=== PATIENT | female | born 1965 | race Two or more races ===

== ENCOUNTER 2024-03-18 14:22 | Outpatient (OUT) | payer OTHER, SELFPAY ==
--- NOTE | 2024-03-18 14:33 | MR_ITS ---
[address] [address] Patient Name: GAEL PATRICK MRN: [id number] date: 1965 Sex: F Assigned Patient Location: MRI Current Patient Location: Accession/Order Number: [id number] Exam Date: 03/18/2024 14:45 Report Date: 03/20/2024 07:16 At the request of: LEONIE DESAI Procedure: MR lumbar spine wo con EXAMINATION: MR lumbar spine wo con HISTORY: Lumbar Radiculopathy, Degenerative Disc Disease Lumbar COMPARISON: No relevant comparison available. TECHNIQUE: A variety of imaging planes and parameters were utilized for visualization of suspected pathology. FINDINGS: For the purposes of numbering, sagittal T2 image # 8 extends from the T11 vertebral body superiorly to the S3-S4 level inferiorly. PARASPINAL AREA: Normal with no visible mass. BONES: 3 mm retrolisthesis of L5 in relation to L4 and S1. No acute fracture or bone edema CORD/CAUDA EQUINA: Normal caliber, contour, and signal intensity. DISC LEVELS: 12-L1: No significant disc/facet abnormality, spinal stenosis, or foraminal stenosis. L1-L2: No significant disc/facet abnormality, spinal stenosis, or foraminal stenosis. L2-L3: Disc desiccation. Broad-based posterior disc herniation of the protrusion type measuring 4.1 mm on sagittal image #8. Ligamentum flavum hypertrophy and facet osteoarthropathy. No central or foraminal stenosis L3-L4: Moderate disc space narrowing and disc desiccation. Broad-based posterior disc herniation of the protrusion type extending posteriorly up to 3.9 mm. Ligamentum flavum hypertrophy and facet osteoarthropathy. No central canal stenosis. Mild bilateral foraminal stenosis L4-L5: 3 mm anterolisthesis of L4 in relation L5. Moderate disc space narrowing and disc desiccation. No disc bulge or herniation. No central or foraminal stenosis L5-S1: 3 mm retrolisthesis of L5 in relation S1. Moderate disc space narrowing and desiccation. Moderate diffuse disc/osteophyte complex with posterior disc herniation extending posteriorly 4.8 mm sagittal image #8. Ligamentum flavum hypertrophy and facet osteoarthropathy. No central canal stenosis. Mild to moderate right and moderate left foraminal stenosis MR/MR lumbar spine wo con IMPRESSION: Degenerative changes resulting in foraminal stenosis at L3-L4 and L5-S1 detailed above Electronically authenticated by: CARLEY ORTIZ Date: 03/20/2024 07:16
== END 2024-03-18 14:23 | disposition home or self-care (01) ==
LOC: MRI 14:28
PROVIDERS: PCP Family Medicine; Visit Provider Specialist/Technologist Athletic Trainer
DX: M54.16 Radiculopathy, lumbar region (principal); M51.369 Other intervertebral disc degeneration, lumbar region without mention of lumbar back pain or lower extremity pain
CPT/HCPCS: 72148

== ENCOUNTER 2024-05-08 13:26 | Outpatient (OUT) | payer OTHER, SELFPAY ==
--- NOTE | 2024-05-08 13:29 | MM_ITS ---
Patient Name: GAEL PATRICK MR#: [id number] : 1965 Exam Date: 05/08/2024 Ordering Doctor: [facility] REPORT PROCEDURE: MM TOMOSYNTHESIS SCREENING BI COMPARISON: MG MAMM SCREEN ALEX W CAD, 01/30/2019. MG MAMM SCREEN 3D ALEX CAD, 11/04/2021. INDICATIONS: Screening Calculator Name NCI Breast Cancer Risk Assessment Tool 5 Year Breast Cancer Risk 0.80% Lifetime Breast Cancer Risk 4.00% Personal Breast Cancer No Personal Ovarian Cancer No Treatments None Family Cancers Grandfather-paternal with ? stomach cancer at age 68; Son with colon/ stomach cancer at age 68. LOCATION: [facility] BREAST COMPOSITION: There are scattered areas of fibroglandular density. FINDINGS: DIAGNOSTIC CATEGORY 1--NEGATIVE. NO CHANGE FROM COMPARISON ASSESSMENT. Scattered benign-appearing calcifications are present. Scattered benign-appearing lymph nodes are present. RIGHT BREAST: No significant suspicious finding. LEFT BREAST: No significant suspicious finding. RECOMMENDATIONS: ROUTINE MAMMOGRAM AND CLINICAL EVALUATION IN 12 MONTHS. PLEASE NOTE: A NORMAL MAMMOGRAM DOES NOT EXCLUDE THE POSSIBILITY OF BREAST CANCER. A CLINICALLY SUSPICIOUS PALPABLE LUMP SHOULD BE BIOPSIED. Dictated by: Brian Cunha MD on 05/08/2024 at 15:35 Approved by: Brian Cunha MD on 05/08/2024 at 15:36
--- OUTSIDE RECORDS SUMMARY | 2024-05-08 13:31 | XMS_ITS | CCD ---
Author Organization [facility] Care Team Providers Care Butt Sawyer Name Role Phone DR KIT TILLEY Attending Unavailable TREVA, DR KIT Conteh Admitting Unavailable VICKY, DR EVIN Conteh Consulting Unavailable DR KIT TILLEY Consulting Unavailable Deepak SAVINGS COUNSELORAdelaide JUAREZ [facility] ADELAIDE MATHUR Attending Unavailable ADELAIDE MATHUR Referring Unavailable ADELAIDE MATHUR Primary Care Unavailable ADELAIDE MATHUR Referring Unavailable ADELAIDE MATHUR Primary Care Unavailable Medications Current Medications Medication Drug Class(es) Dates Sig (Normalized) Sig (Original) latanoprost 0.05 mg/ml ophthalmic solution (2 sources) Prostaglandin Analog take 1 drop(s) into the eye(s) once daily latanoprost (XALATAN) 0.005 % ophthalmic solution 1 drop nightly. Active methIMAzole 5 mg oral tablet (1 source) Thyroid Hormone Synthesis Inhibitor Start: 03-31-2024 take 1 tablet by mouth in the morning methIMAzole (TAPAZOLE) 5 mg tablet Indications: Hyperthyroidism Take 1 tablet (5 mg total) by mouth in the morning. 90 tablet 1 03/31/2024 Active Problems Active Problems Problem Classification Problem Date Documented Da te Episodic/Chronic Immunizations and screening for infectious disease (3 sources) Viral screening status; Translations: [Encounter for screening for other viral diseases] Onset: 03-20-2024 03-20-2024 Episodic Other screening for suspected conditions (not mental disorders or infectious disease) (8 sources) Encounter for screening mammogram for malignant neoplasm of breast; Translations: [Patient encounter status] Onset: 11-04-2021 Episodic Residual codes; unclassified (1 source) Family history of malignant neoplasm of digestive organs; Translations: [FAM HX MALIG NEOPLASM DIGESTIV ORGN] Onset: 11-09-2021 Episodic Residual codes; unclassified (1 source) Menopause present; Translations: [Asymptomatic menopausal state] 03-20-2024 Episodic Residual codes; unclassified (1 source) Asymptomatic menopausal state; Translations: [Asymptomatic menopausal state] Onset: 03-20-2024 Episodic Thyroid disorders (4 sources) Hyperthyroidism; Translations: [Thyrotoxicosis, unspecified without thyrotoxic crisis or storm] Onset: 03-20-2024 03-20-2024 Chronic Unclassified (1 source) Annual Exam Onset: 03-20-2024 Past or Other Problems Problem Classification Problem Date Documented Da te Episodic/Chronic Mood disorders (2 sources) Mood disorders Onset: 03-20-2024 03-20-2024 Unclassified (2 sources) Onset: 03-20-2024 03-20-2024 Results Test Name Value Interpretation Reference Range Facil ity CBC AND AUTO DIFFon 03-20-20 24 ABSOLUTE BASOPHIL 0.0 X10E9/L Normal 0.0-0.2 [facility] Comment on above: Performed By: #### 2 4331-1, 46410-7, HA1C, THYR, CBCA, CMP, 3051-0 #### [facility] ([id number]) [address], [address] [place] [address] Basophils/100 WBC (Bld) 1.0 % Normal [facility] Comment on above: Performed By: #### 2 4331-1, 16812-9, HA1C, THYR, CBCA, CMP, 3051-0 #### [facility] ([id number]) [address], [address] [place] [address] Eosinophils (Bld) [#/Vol] 0.1 10*3/uL Normal 0.0-0.4 [facility] Comment on above: Performed By: #### 2 4331-1, 28833-2, HA1C, THYR, CBCA, CMP, 3051-0 #### [facility] ([id number]) [address], [address] [place] [address] Eosinophils/100 WBC (Bld) 2.0 % Normal [facility] Comment on above: Performed By: #### 2 4331-1, 52094-6, HA1C, THYR, CBCA, CMP, 3051-0 #### [facility] ([id number]) [address] [address] Erythrocyte distribution width (RBC) [Ratio] 14.9 % Normal 11.5-15.0 [facility] Comment on above: Performed By: #### 2 4331-1, 31642-0, HA1C, THYR, CBCA, CMP, 3051-0 #### [facility] ([id number]) [address] [address] Hematocrit (Bld) [Volume fraction] 41.3 % Normal 35-47 [facility] Comment on above: Performed By: #### 2 4331-1, 37124-5, HA1C, THYR, CBCA, CMP, 3051-0 #### [facility] ([id number]) [address] [address] Hemoglobin (Bld) [Mass/Vol] 13.6 g/dL Normal 11.7-15.5 [facility] Comment on above: Performed By: #### 2 4331-1, 78333-0, HA1C, THYR, CBCA, CMP, 3051-0 #### [facility] ([id number]) [address] [address] Lymphocytes (Bld) [#/Vol] 1.3 10*3/uL Normal 1.0-3.5 [facility] Comment on above: Performed By: #### 2 4331-1, 45226-5, HA1C, THYR, CBCA, CMP, 3051-0 #### [facility] ([id number]) [address] [address] Lymphocytes/100 WBC (Bld) 36.0 % Normal [facility] Comment on above: Performed By: #### 2 4331-1, 35025-9, HA1C, THYR, CBCA, CMP, 3051-0 #### [facility] ([id number]) [address], [facility] [address] [place] [address] MCH (RBC) [Entitic mass] 26.4 pg Low 27-34 [facility] Comment on above: Performed By: #### 2 4331-1, 71747-7, HA1C, THYR, CBCA, CMP, 3051-0 #### [facility] ([id number]) [address], [facility] [address] [place] [address] MCHC (RBC) [Mass/Vol] 33.0 g/dL Normal 32-36 [facility] Comment on above: Performed By: #### 2 4331-1, 39332-9, HA1C, THYR, CBCA, CMP, 3051-0 #### [facility] ([id number]) [address], [address] [address] MCV (RBC) [Entitic vol] 80 fL Normal 80-100 [facility] Comment on above: Performed By: #### 2 4331-1, 00605-2, HA1C, THYR, CBCA, CMP, 3051-0 #### [facility] ([id number]) [address] [address] Monocytes (Bld) [#/Vol] 0.4 10*3/uL Normal 0-0.9 [facility] Comment on above: Performed By: #### 2 4331-1, 39743-7, HA1C, THYR, CBCA, CMP, 3051-0 #### [facility] ([id number]) [address] [address] Monocytes/100 WBC (Bld) 11.0 % Normal [facility] Comment on above: Performed By: #### 2 4331-1, 69079-0, HA1C, THYR, CBCA, CMP, 3051-0 #### [facility] ([id number]) [address], [address] [place] [address] Neutrophils (Bld) [#/Vol] 1.9 10*3/uL Normal 1.5-6.6 [facility] Comment on above: Performed By: #### 2 4331-1, 38400-7, HA1C, THYR, CBCA, CMP, 3051-0 #### [facility] ([id number]) [address], [address] [place] [address] Platelet mean volume (Bld) [Entitic vol] 10.2 fL Normal 7-12 [facility] Comment on above: Performed By: #### 2 4331-1, 64216-3, HA1C, THYR, CBCA, CMP, 3051-0 #### [facility] ([id number]) [address], [address] [address] Platelets (Bld) [#/Vol] 150 10*3/uL Normal 150-450 [facility] Comment on above: Performed By: #### 2 4331-1, 01536-6, HA1C, THYR, CBCA, CMP, 3051-0 #### [facility] ([id number]) [address] [address] [place] [address] RBC COUNT 5.17 X10E12/L Normal 3.80-5.20 [facility] Comment on above: Performed By: #### 2 4331-1, 55253-7, HA1C, THYR, CBCA, CMP, 3051-0 #### [facility] ([id number]) [address] [address] [place] [address] RBC morphology finding Nom (Bld) NORMAL Normal [facility] Comment on above: Performed By: #### 2 4331-1, 62744-4, HA1C, THYR, CBCA, CMP, 3051-0 #### [facility] ([id number]) [address], [address] [place] [address] SEG NEUTROPHIL 50.0 % Normal [facility] Comment on above: Performed By: #### 2 4331-1, 03693-9, HA1C, THYR, CBCA, CMP, 3051-0 #### [facility] ([id number]) [address], [address] [place] [address] WBC (Bld) [#/Vol] 3.7 10*3/uL Low 4.0-11.0 [facility] Comment on above: Performed By: #### 2 4331-1, 83476-6, HA1C, THYR, CBCA, CMP, 3051-0 #### [facility] ([id number]) [address], [address] [place] [address] COMPREHENSIVE METABOLIC PANE Jose 03-20-2024 Albumin [Mass/Vol] 4.1 g/dL Normal 3.2-5.3 [facility] Comment on above: Performed By: #### 2 4331-1, 21041-3, HA1C, THYR, CBCA, CMP, 3051-0 #### [facility] ([id number]) [address] [address] [place] [address] ALP [Catalytic activity/Vol] 84 U/L Normal 39-130 [facility] Comment on above: Performed By: #### 2 4331-1, 81801-7, HA1C, THYR, CBCA, CMP, 3051-0 #### [facility] ([id number]) [address] [address] [place] [address] ALT [Catalytic activity/Vol] 25 U/L Normal 0-31 [facility] Comment on above: Performed By: #### 2 4331-1, 83313-5, HA1C, THYR, CBCA, CMP, 3051-0 #### [facility] ([id number]) [address] [address] [place] [address] Anion gap [Moles/Vol] 8 mmol/L Normal 5-15 [facility] Comment on above: Performed By: #### 2 4331-1, 00311-4, HA1C, THYR, CBCA, CMP, 3051-0 #### [facility] ([id number]) [address], [address] [place] [address] AST [Catalytic activity/Vol] 21 U/L Normal 0-41 [facility] Comment on above: Performed By: #### 2 4331-1, 89443-5, HA1C, THYR, CBCA, CMP, 3051-0 #### [facility] ([id number]) [address], [address] [place] [address] Bilirubin [Mass/Vol] 0.4 mg/dL Normal 0.3-1.2 [facility] Comment on above: Performed By: #### 2 4331-1, 92352-9, HA1C, THYR, CBCA, CMP, 3051-0 #### [facility] ([id number]) [address], [address] [place] [address] Calcium [Mass/Vol] 9.4 mg/dL Normal 8.5-10.5 [facility] Comment on above: Performed By: #### 2 4331-1, 61286-5, HA1C, THYR, CBCA, CMP, 3051-0 #### [facility] ([id number]) [address], [address] [place] [address] Chloride [Moles/Vol] 105 mmol/L Normal 98-109 [facility] Comment on above: Performed By: #### 2 4331-1, 21089-7, HA1C, THYR, CBCA, CMP, 3051-0 #### [facility] ([id number]) [address], [address] [place] [address] CO2 [Moles/Vol] 27 mmol/L Normal 22-32 [facility] Comment on above: Performed By: #### 2 4331-1, 56440-6, HA1C, THYR, CBCA, CMP, 3051-0 #### [facility] ([id number]) [address] [address] Creatinine [Mass/Vol] 0.50 mg/dL Normal 0.40-1.00 [facility] Comment on above: Result Comment: METH OD TRACEABLE TO IDMS STANDARD Performed By: #### 2 4331-1, 65226-7, HA1C, THYR, CBCA, CMP, 3051-0 #### [facility] ([id number]) [address] [address] eGFR (CKD-EPI) NON-RACE DEPENDENT >90 Normal >59 [facility] Comment on above: Result Comment: Reported eGFR is based on the CKD-EPI 2020 equation that does not use a race coefficient. Performed By: #### 2 4331-1, 80730-0, HA1C, THYR, CBCA, CMP, 3051-0 #### [facility] ([id number]) [address] [address] Glucose [Mass/Vol] 94 mg/dL Normal 65-99 [facility] Comment on above: Performed By: #### 2 4331-1, 07176-2, HA1C, THYR, CBCA, CMP, 3051-0 #### [facility] ([id number]) [address] [address] Potassium [Moles/Vol] 4.3 mmol/L Normal 3.5-5.0 [facility] Comment on above: Performed By: #### 2 4331-1, 16399-7, HA1C, THYR, CBCA, CMP, 3051-0 #### [facility] ([id number]) [address] [address] Protein [Mass/Vol] 7.2 g/dL Normal 6.0-8.0 [facility] Comment on above: Performed By: #### 2 4331-1, 61001-2, HA1C, THYR, CBCA, CMP, 3051-0 #### [facility] ([id number]) [address], [address] [place] [address] Sodium [Moles/Vol] 140 mmol/L Normal 134-146 [facility] Comment on above: Performed By: #### 2 4331-1, 88425-3, HA1C, THYR, CBCA, CMP, 3051-0 #### [facility] ([id number]) [address] [address] Urea nitrogen [Mass/Vol] 15 mg/dL Normal 5-27 [facility] Comment on above: Performed By: #### 2 4331-1, 39215-9, HA1C, THYR, CBCA, CMP, 3051-0 #### [facility] ([id number]) [address], [address] [address] FREE T3on 03-20-2024 Free T3 [Mass/Vol] 4.99 pg/mL High 2.50-3.90 [facility] Comment on above: Performed By: #### 2 4331-1, 54007-3, HA1C, THYR, CBCA, CMP, 3051-0 #### [facility] ([id number]) [address], [address] [place] [address] HCV Ab IA Qlon 03-20-2024 ANTI HCV W/PCR REFLX Non-Reactive Normal NRCT [facility] Comment on above: Result Comment: If recent infection suspected, recommend repeat testing (>2 months). Avkryj-om-gsezya ratio is <0.80. Performed By: #### 2 4331-1, 39674-3, HA1C, THYR, CBCA, CMP, 3051-0 #### [facility] ([id number]) [address] [address] HGB A1C (GLYCO-HGB)on 2023 Glucose [Mass/Vol] 117 mg/dL Normal [facility] Comment on above: Performed By: #### 2 4331-1, 64899-3, HA1C, THYR, CBCA, CMP, 3051-0 #### [facility] ([id number]) [address] [address] HbA1c (Bld) [Mass fraction] 5.7 % High 4.4-5.6 [facility] Comment on above: Result Comment: NOTE ADA Guidelines Result HgbA1c Normal : less than 5.7 % Prediabetes : 5.7 % to 6.4 % Diabetes : > 6.4 % Use with caution in patients with abnormal hemoglobin variants as the half-life of red blood cells and in vivo glycation rates are affected. Performed By: #### 2 4331-1, 03710-0, HA1C, THYR, CBCA, CMP, 3051-0 #### [facility] ([id number]) [address] [address] Lipid 1996 panelon Cholesterol [Mass/Vol] 167 mg/dL Normal 150-200 [facility] Comment on above: Performed By: #### 2 4331-1, 22908-0, HA1C, THYR, CBCA, CMP, 3051-0 #### [facility] ([id number]) [address] [address] Cholesterol in HDL [Mass/Vol] 76 mg/dL Normal >39 [facility] Comment on above: Result Comment: HDL <40 mg/dL - High Risk HDL > or = 40mg/dL- Desirable HDL >60 mg/dL - Negative Risk Performed By: #### 2 4331-1, 69181-3, HA1C, THYR, CBCA, CMP, 3051-0 #### [facility] ([id number]) [address] [address] Cholesterol in LDL [Mass/Vol] 79 mg/dL Normal <130 [facility] Comment on above: Result Comment: LDL <100 mg/dL - Desirable LDL >160 mg/dL - High Risk Performed By: #### 2 4331-1, 27390-1, HA1C, THYR, CBCA, CMP, 3051-0 #### [facility] ([id number]) [address] [address] Cholesterol in VLDL [Mass/Vol] 12 mg/dL Normal 0-30 [facility] Comment on above: Performed By: #### 2 4331-1, 74368-4, HA1C, THYR, CBCA, CMP, 3051-0 #### [facility] ([id number]) [address] [address] CHOLESTEROL:HDL 2.2 Normal 1.0-5.0 [facility] Comment on above: Performed By: #### 2 4331-1, 89822-4, HA1C, THYR, CBCA, CMP, 3051-0 #### [facility] ([id number]) [address] [address] Triglyceride [Mass/Vol] 58 mg/dL Normal 27-150 [facility] Comment on above: Performed By: #### 2 4331-1, 39285-0, HA1C, THYR, CBCA, CMP, 3051-0 #### [facility] ([id number]) [address] [address] [place] [address] THYROID PROFILEon 03-20-2024 Free T4 [Mass/Vol] 1.48 ng/dL Normal 0.61-1.60 [facility] Comment on above: Performed By: #### 2 4331-1, 83721-3, HA1C, THYR, CBCA, CMP, 3051-0 #### [facility] ([id number]) [address] [place] [address] TSH Qn m[IU]/L Low 0.49-4.67 [facility] Comment on above: Performed By: #### 2 4331-1, 16116-6, HA1C, THYR, CBCA, CMP, 3051-0 #### [facility] ([id number]) [address] [place] [address] MG MAMM SCREEN 3D ALEX CADon 11-04-2021 MG MAMM SCREEN 3D ALEX CAD Patient: THUY SILVEIRA Exam Date: 11/04/2021 : 1965 Gender:F Ordering : DR KIT TILLEY Admission #: [id number] Family : Order #: [id number] CLICK HERE TO VIEW EXAM RADIOLOGY REPORT PROCEDURE: MAMMOGRAM SCREENING 3D BILATERAL CAD COMPARISON: MG MAMM SCREEN ALEX W CAD, 01/30/2019. MG MAMM SCREEN ALEX W CAD, 01/16/2018. INDICATIONS: Screening mammography Calculator Name NCI Breast Cancer Risk Assessment Tool 5 Year Breast Cancer Risk 0.70% Lifetime Breast Cancer Risk 4.40% Personal Breast Cancer No Personal Ovarian Cancer No Treatments None Family Cancers Grandfather-paternal with ? stomach cancer at age 68; Son with colon/ stomach cancer at age 68. LOCATION: [facility] BREAST COMPOSITION: Scattered areas fibroglandular density. FINDINGS: DIAGNOSTIC CATEGORY 1--NEGATIVE. RIGHT BREAST: No significant suspicious finding. No significant change has occurred. LEFT BREAST: No significant suspicious finding. No significant change has occurred. RECOMMENDATIONS: ROUTINE MAMMOGRAM AND CLINICAL EVALUATION IN 12 MONTHS. PLEASE NOTE: A NORMAL MAMMOGRAM DOES NOT EXCLUDE THE POSSIBILITY OF BREAST CANCER. A CLINICALLY SUSPICIOUS PALPABLE LUMP SHOULD BE BIOPSIED. Dictated by: Evin Saldaña M.D. on 11/04/2021 at 15:23 Approved by: Evin Saldaña M.D. on 11/04/2021 at 15:25 Normal [facility] TSH+FREE T4on 08-13-2021 Free T4 [Mass/Vol] 1.0 ng/dL Normal 0.8-1.8 [facility] Comment on above: Performed By: #### 5 8984 #### [facility] [place] [address] Shellacker: Gavino Burr MD TSH Qn 0.84 m[IU]/L Normal 0.40-4.50 [facility] Comment on above: Performed By: #### 5 8984 #### [facility] [place] [address] Shellacker: Gavino Burr MD COMPREHENSIVE METABOLIC PANE [facility] 02-10-2021 Albumin [Mass/Vol] 4.2 g/dL Normal 3.6-5.1 [facility] Comment on above: Performed By: #### 1 023, 0, 269, 866 #### [facility] [place] [address] Shellacker: Gavino Burr MD Albumin/Globulin [Mass ratio] 1.5 {ratio} Normal 1.0-2.5 [facility] Comment on above: Performed By: #### 1 023, 7599, 503, 866 #### [facility] [place] [address] Shellacker: Gavino Burr MD ALP [Catalytic activity/Vol] 111 U/L Normal 37-153 [facility] Comment on above: Performed By: #### 1 0231, 7600, 049, 866 #### [facility] [place] [address] Shellacker: Gavino Burr MD ALT [Catalytic activity/Vol] 19 U/L Normal 6-29 [facility] Comment on above: Performed By: #### 1 0231, 8490, 569, 866 #### [facility] of [address], [address] [place] [address] Shellacker: Gvaino Burr MD AST [Catalytic activity/Vol] 20 U/L Normal 10-35 [facility] Comment on above: Performed By: #### 1 0231, 7600, 899, 866 #### [facility] of [address], [address] [place] [address] Shellacker: Gavino Burr MD Bilirubin [Mass/Vol] 0.5 mg/dL Normal 0.2-1.2 [facility] Comment on above: Performed By: #### 1 0231, 7599, 899, 866 #### [facility] of [address], [address] [place] [address] Shellacker: Gavino Burr MD BUN/CREATININE RATIO NOT APPLICABLE Normal 6-22 [facility] Comment on above: Performed By: #### 1 023, 7599, 89, 866 #### [facility] of [address], [address] [place] [address] Shellacker: Gavino Burr MD Calcium [Mass/Vol] 8.9 mg/dL Normal 8.6-10.4 [facility] Comment on above: Performed By: #### 1 023, 7599, 899, 866 #### [facility] of [address], [address] [place] [address] Shellacker: Gavino Burr MD Chloride [Moles/Vol] 105 mmol/L Normal 98-110 [facility] Comment on above: Performed By: #### 1 0231, 0, 899, 866 #### [facility] [place] [address] Shellacker: Gavino Burr MD CO2 [Moles/Vol] 27 mmol/L Normal 20-32 [facility] Comment on above: Performed By: #### 1 0231, 0, 899, 866 #### [facility] of [address], [address] [place] [address] Shellacker: Gavino Burr MD Creatinine [Mass/Vol] 0.74 mg/dL Normal 0.50-1.05 [facility] Comment on above: Result Comment: For patients >49 years of age, the reference limit for Creatinine is approximately 13% higher for people identified as -Macanese. Performed By: #### 1 023, 0, 89, 866 #### [facility] [place] [address] Shellacker: Gavino Burr MD eGFR NON-AFR. UKRAINIAN 90 mL/min/1.73m2 Normal > OR = 60 [facility] Comment on above: Performed By: #### 1 023, 7599, 89, 866 #### [facility] [place] [address] Shellacker: Gavino Burr MD GFR/1.73 sq M.predicted among blacks MDRD (S/P/Bld) [Vol rate/Area] 104 mL/min/{1.73_m2} Normal > OR = 60 [facility] Comment on above: Performed By: #### 1 023, 7599, 89, 866 #### [facility] [place] [address] Shellacker: Gavino Burr MD Globulin (S) [Mass/Vol] 2.8 g/dL Normal 1.9-3.7 [facility] Comment on above: Performed By: #### 1 023, 7599, 89, 866 #### [facility] [place] [address] Shellacker: Gavino Burr MD Glucose [Mass/Vol] 90 mg/dL Normal 65-139 [facility] Comment on above: Result Comment: Non-fasting reference interval Performed By: #### 1 023, 7599, 89, 866 #### [facility] [place] [address] Shellacker: Gavino Burr MD Potassium [Moles/Vol] 4.2 mmol/L Normal 3.5-5.3 [facility] Comment on above: Performed By: #### 1 0231, 7599, 89, 866 #### [facility] [place] [address] Shellacker: Gavino Burr MD Protein [Mass/Vol] 7.0 g/dL Normal 6.1-8.1 [facility] Comment on above: Performed By: #### 1 023, 7599, , 866 #### [facility] [place] [address] Shellacker: Gavino Burr MD Sodium [Moles/Vol] 140 mmol/L Normal 135-146 [facility] Comment on above: Performed By: #### 1 0231, 7599, , 866 #### [facility] [place] [address] Shellacker: Gavino Burr MD Urea nitrogen [Mass/Vol] 16 mg/dL Normal 7-25 [facility] Comment on above: Performed By: #### 1 023, 7599, 89, 866 #### [facility] [place] [address] Shellacker: Gavino Burr MD LIPID PANEL, [facility] 09-2 Cholesterol [Mass/Vol] 209 mg/dL High <200 [facility] Comment on above: Order Comment: FASTI NG:NO FASTING: NO Performed By: #### 1 023, 7599, 89, 866 #### [facility] [place] [address] Shellacker: Gavino Burr MD Cholesterol in HDL [Mass/Vol] 88 mg/dL Normal > OR = 50 [facility] Comment on above: Order Comment: FASTI NG:NO FASTING: NO Performed By: #### 1 023, 7599, 89, 866 #### [facility] [place] [address] Shellacker: Gavino Burr MD Cholesterol in LDL [Mass/Vol] 107 mg/dL High [facility] Comment on above: Order Comment: FASTI NG:NO FASTING: NO Result Comment: Refe rence range: <100 Desirable range <100 mg/dL for primary prevention; <70 mg/dL for patients with CHD or diabetic patients with > or = 2 CHD risk factors. LDL-C is now calculated using the Mihaela calculation, which is a validated novel method providing better accuracy than the Friedewald equation in the estimation of LDL-C. Jonathan SS et al. SHASHANK. 2013;310(19): 8501-8289 (http://education.[employer]/faq/WZC414) Performed By: #### 1 0231, 7600, 899, 866 #### [facility] [address], [address] [place] [address] Shellacker: Gavino Burr MD Cholesterol.total/C holesterol in HDL [Mass ratio] 2.4 {ratio} Normal <5.0 [facility] Comment on above: Order Comment: FASTI NG:NO FASTING: NO Performed By: #### 1 0231, 7600, 899, 866 #### [facility] [place] [address] Shellacker: Gavino Burr MD NON HDL CHOLESTEROL 121 mg/dL (calc) Normal <130 [facility] Comment on above: Order Comment: FASTI NG:NO FASTING: NO Result Comment: For patients with diabetes plus 1 major ASCVD risk factor, treating to a non-HDL-C goal of <100 mg/dL (LDL-C of <70 mg/dL) is considered a therapeutic option. Performed By: #### 1 0231, 7600, 899, 866 #### [facility] [address], [address] [place] [address] Shellacker: Gavino Burr MD Triglyceride [Mass/Vol] 56 mg/dL Normal <150 [facility] Comment on above: Order Comment: FASTI NG:NO FASTING: NO Performed By: #### 1 0231, 7600, 899, 866 #### [facility] [address], [address] [place] [address] Shellacker: Gavino Burr MD T4, FREEon 02-10-2021 Free T4 [Mass/Vol] 0.8 ng/dL Normal 0.8-1.8 [facility] Comment on above: Performed By: #### 1 [id number], [id number], [phone], [phone] #### [facility] [address], [address] [place] [address] Shellacker: Gavino Burr MD TSHon 02-10-2021 TSH Qn 2.80 m[IU]/L Normal 0.40-4.50 [facility] Comment on above: Performed By: #### 1 [id number], [id number], [phone], [phone] #### [facility] of [address], [address] [place] [address] Shellacker: Gavino Burr MD Vital Signs Date Time Vital Sign Value Performing Clinician Pedro Luis marie 03-20-2024 15:52-0400 Body height 153.6 cm Adelaide RIVERA Work Phone: [facility] 03-20-2024 15:52-0400 Body mass index (BMI) [Ratio] 29.07 kg/m2 Adelaide Mathur APRN-SHIPYARD SUPERVISOR Work Phone: [facility] 03-20-2024 15:52-0400 Body temperature 97.9 [degF] Adelaide Mathur APRN-SHIPYARD SUPERVISOR Work Phone: [facility] 03-20-2024 15:52-0400 Body weight 68.58 kg Adelaide Mathur APRN-SHIPYARD SUPERVISOR Work Phone: [facility] [employer] [facility] 03-20-2024 15:52-0400 Diastolic blood pressure 70 mm[Hg] Adelaide Mathur APRN-SHIPYARD SUPERVISOR Work Phone: [facility] 03-20-2024 15:52-0400 Heart rate 79 /min Adelaide RIVERA Work Phone: [facility] 03-20-2024 15:52-0400 Respiratory rate 18 /min [facility] Work Phone: [facility] 03-20-2024 15:52-0400 SaO2% (BldA) [Mass fraction] 97 % Adelaide [facility] Work Phone: [facility] 03-20-2024 15:52-0400 Systolic blood pressure 118 mm[Hg] Adelaide [facility] Work Phone: [facility] Encounters Encounter Date Encounter Type Care Provider Facility Start: 03-31-2024 End: 03-31-2024 Orders Only Adelaidemikala Mathur [facility] Work Phone: [facility] Comment on above: Hyperthyroidism (Azeb kit Dx) Start: 03-20-2024 End: 03-20-2024 ambulatory [facility] Start: 03-20-2024 Encounter for genera l adult medical examination without abnormal findings [facility] Start: 03-20-2024 End: 03-20-2024 Initial preventive medicine new patient 40-64yrs Adelaide Mathur [facility] Work Phone: [facility] Comment on above: Annual physical exam (Primary Dx); Encounter for screening mammogram for malignant neoplasm of breast; Encounter for screening for osteoporosis; Asymptomatic menopausal state; Hyperthyroidism; Blood tests for routine general physical examination; Need for hepatitis C screening test Start: 03-20-2024 End: 03-20-2024 Patient encounter procedure Adelaide Mathur [facility] Work Phone: [facility] Start: 03-20-2024 End: 03-20-2024 Physical examination Adelaidemikala Lowillo [facility] Work Phone: [facility] Start: 03-20-2024 End: 03-20-[address] 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-[employer]IPYARD SUPERVISOR Work Phone: Plan of Treatment Date Care Activity Detail Author Start: 03-20-2025 Adult BMI Follow Up Plan Adult BMI F ollow Up Plan [facility] Start: 03-20-2025 Adult BMI Screening Adult BMI Screen ing [facility] Start: 03-20-2025 Depression Screening Depression Scre ening [facility] Start: 03-20-2025 Tobacco Screening Tobacco Screening [facility] Start: 05-21-2024 End: 03-31-2025 Thyroid profile includes TSH FT4 Thyroid profile includes TSH FT4 Lab Routine Hyperthyroidism Expected: 05/21/2024 (Approximate), Expires: 03/31/2025 [facility] Comment on above: Expected: 05/21/2024 (Approximate), Expires: 03/31/2025 Start: 05-15-2024 End: 05-15-2024 ambulatory 05/15/2024 11:15 AM EST Support Visit [facility] [address] [place] [address] Zachery Pabon, DO [address], [facility] [place] [address] [facility] Start: 03-31-2024 End: 03-31-2025 US Thyroid gland Ultrasound thyroid Imaging Routine Hyperthyroidism Expected: 03/31/2024, Expires: 03/31/2025 [facility] Work Phone: Comment on above: Expected: 03/31/2024 , Expires: 03/31/2025 Start: 03-20-2024 End: 03-20-2025 DBT Breast - bilateral screening Mammography screening bilateral with CAD Imaging Routine Encounter for screening mammogram for malignant neoplasm of breast Expected: 03/20/2024, Expires: 03/20/2025 [employer] Work Phone: Comment on above: Expected: 03/20/2024 , Expires: 03/20/2025 Start: 03-20-2024 End: 03-20-2025 DXA Skeletal system Views for bone density Dexa scan central skeletal Imaging Routine Encounter for screening for osteoporosis Asymptomatic menopausal state Expected: 03/20/2024, Expires: 03/20/2025 [facility] [employer] [facility] Comment on above: Expected: 03/20/2024 , Expires: 03/20/2025 Start: 01-20-2024 COVID-19 Vaccine ( season) COVID-19 Vaccine () [facility] [employer] [facility] Start: 01-20-2024 Influenza vaccination Influenza Vacc ine [facility] Start: 2013 Administration of varicella zoster vaccine Zoster (Shingles) Vaccine (1 of 2) [facility] [employer] [facility] Start: 2008 Screening for malign ant neoplasm of colon Colonoscopy [facility] [employer] [facility] Start: 1984 Screening for malign ant neoplasm of cervix Pap Smear [facility] [employer] Start: 1982 DTaP,Tdap and Td Vac cines (1 - Tdap) DTaP,Tdap and Td Vaccines ( - Tdap) [facility] [employer] [facility] Start: 1981 Adult BMI Follow Up Plan Adult BMI F ollow Up Plan [facility] [employer] [facility] End: 03-20-2025 CBC W Auto Differential panel - Blood CBC auto differential Lab Routine Blood tests for routine general physical examination 1 Occurrences starting 03/20/2024 until 03/20/2025 [facility] [employer] Comment on above: 1 Occurrences starti ng 03/20/2024 until 03/20/2025 End: 03-20-2025 Comprehensive metabolic 2000 panel - Serum or Plasma Comprehensive metabolic panel Lab Routine Blood tests for routine general physical examination 1 Occurrences starting 03/20/2024 until 03/20/2025 [facility] Comment on above: 1 Occurrences starti ng 03/20/2024 until 03/20/2025 End: 03-20-2025 Hemoglobin A1c/Hemoglobin.total in Blood Hemoglobin A1c Lab Routine Blood tests for routine general physical examination 1 Occurrences starting 03/20/2024 until 03/20/2025 [facility] Comment on above: 1 Occurrences starti ng 03/20/2024 until 03/20/2025 End: 03-20-2025 Hepatitis C(HCV) Ab w/ Reflex to PCR Hepatitis C(HCV) Ab w/ Reflex to PCR Lab Routine Need for hepatitis C screening test 1 Occurrences starting 03/20/2024 until 03/20/2025 [facility] Comment on above: 1 Occurrences starti ng 03/20/2024 until 03/20/2025 End: 03-20-2025 Lipid 1996 panel - Serum or Plasma Lipid profile Lab Routine Blood tests for routine general physical examination 1 Occurrences starting 03/20/2024 until 03/20/2025 [facility] [employer] [facility] Comment on above: 1 Occurrences starti ng 03/20/2024 until 03/20/2025 End: 03-20-2025 Thyroid profile includes TSH FT4 Thyroid profile includes TSH FT4 Lab Routine Hyperthyroidism 1 Occurrences starting 03/20/2024 until 03/20/2025 [facility] Comment on above: 1 Occurrences starti ng 03/20/2024 until 03/20/2025 End: 03-20-2025 Triiodothyronine (T3) Free [Mass/volume] in Serum or Plasma T3, free Lab Routine Hyperthyroidism 1 Occurrences starting 03/20/2024 until 03/20/2025 [facility] Comment on above: 1 Occurrences starti ng 03/20/2024 until 03/20/2025 End: 03-31-2025 Triiodothyronine (T3) Free [Mass/volume] in Serum or Plasma T3, free Lab Routine Hyperthyroidism 1 Occurrences starting 03/31/2024 until 03/31/2025 [facility] Comment on above: 1 Occurrences starti ng 03/31/2024 until 03/31/2025 Payers Date Payer Category Payer Commercial Managed C are - POS [employer] [id number] 1965 Unknown [id number] 1963 Unknown [id number] 1963 Unknown [id number] 1959 Private Health Insurance [id number] Social History Date Type Detail Facility Start: 03-20-2024 Tobacco smoking stat [facility] Never smoked tobacco [facility] Start: 03-20-2024 Tobacco use and exposure Smokeless tobacco non-user [facility] Start: 03-20-2024 Alcoholic beverage intake Ex-drinker (finding) [facility] Start: 10-30-2018 End: 03-20-2024 History of Social function [facility] Start: 10-30-2018 End: 03-20-2024 Tobacco use panel [facility] Adolescent depressio n screening assessment 0 [facility] Start: 03-20-2024 Alcohol Comment rare [facility] Start: 1965 Sex assigned at Not on file [facility] Start: 12-24-2014 Sex Female (finding) [facility] History of Present illness Narrative 03-20-2024 Adelaide Mathur APRN-JASE - 03/20/2024 3:40 PM EDT Note Date & Type Note Facility 03-20-2024 History of Presen t illness Narrative Images from the original note were not included. [address] [place] [id number] SUBJECTIVE: Patient ID: Thuy Silveira is a 59 y.o. female. Chief Complaint Patient presents with Annual Exam Patient presents as new patient establishment. She would like an annual exam and labs today. States it has been more than 3 years since she was seen by PCP. 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 She does not smoke. New Patient Pertinent negatives include no chest pain, chills or fever. The following portions of the patient's history were reviewed and updated as appropriate: allergies, current medications, past family history, past medical history, past social history, past surgical history and problem list. Past Surgical History: Procedure Laterality Date KNEE ARTHROSCOPY Right 08/2014 Past Medical History: Diagnosis Date Back pain Immunization History Administered Date(s) Administered COVID-19, mRNA, LNP-S, PF, 30mcg/0.3mL Dose 08/17/2020, 09/07/2020 REVIEW OF SYSTEMS: Review of Systems Constitutional: Negative for chills and fever. HENT: Negative. Eyes: Negative for visual disturbance. Respiratory: Negative for chest tightness and shortness of breath. Cardiovascular: Negative for chest pain and palpitations. Gastrointestinal: Negative. Endocrine: Negative. Genitourinary: Negative for menstrual problem and pelvic pain. Musculoskeletal: Negative. Skin: Negative. Allergic/Immunologic: Negative. Neurological: Negative for syncope and facial asymmetry. Hematological: Does not bruise/bleed easily. Psychiatric/Behavioral: Negative. PHYSICAL EXAMINATION: Vitals: 03/20/24 1552 BP: 118/70 BP Site: Left Arm BP Postition: Sitting BP CUFF SIZE: M (9-13 inches) Pulse: 79 Resp: 18 Temp: 36.6 C (97.9 F) TempSrc: Oral SpO2: 97% Weight: 68.6 kg (151 lb 3.2 oz) Height: 153.6 cm (5' 0.47 ) Patient noted to have elevated BMI and the following intervention(s) were applied: encouragement to exercise. Physical Exam Vitals and nursing note reviewed. Constitutional: General: She is not in acute distress. Appearance: She is well-developed. She is not diaphoretic. HENT: Head: Normocephalic and atraumatic. Right Ear: Tympanic membrane and external ear normal. Left Ear: Tympanic membrane and external ear normal. Nose: Nose normal. Mouth/Throat: Mouth: Mucous membranes are moist. Pharynx: No oropharyngeal exudate. Eyes: General: Right eye: No discharge. Left eye: No discharge. Conjunctiva/sclera: Conjunctivae normal. Pupils: Pupils are equal, round, and reactive to light. Neck: Thyroid: No thyromegaly. Vascular: No JVD. Cardiovascular: Rate and Rhythm: Normal rate and regular rhythm. Heart sounds: Normal heart sounds. No murmur heard. No friction rub. No gallop. Pulmonary: Effort: Pulmonary effort is normal. Breath sounds: Normal breath sounds. Abdominal: General: Bowel sounds are normal. There is no distension. Palpations: Abdomen is soft. There is no mass. Tenderness: There is no abdominal tenderness. Musculoskeletal: General: Normal range of motion. Cervical back: Normal range of motion and neck supple. Lymphadenopathy: Cervical: No cervical adenopathy. Skin: General: Skin is warm and dry. Capillary Refill: Capillary refill takes less than 2 seconds. Neurological: Mental Status: She is alert and oriented to person, place, and time. Deep Tendon Reflexes: Reflexes are normal and symmetric. Psychiatric: Mood and Affect: Mood normal. Behavior: Behavior normal. Thought Content: Thought content normal. Judgment: Judgment normal. ASSESSMENT/PLAN: Thuy was seen today for annual exam. Diagnoses and all orders for this visit: Annual physical exam Encounter for screening mammogram for malignant neoplasm of breast - Mammography screening bilateral with CAD; Future Encounter for screening for osteoporosis - Dexa scan central skeletal; Future Asymptomatic menopausal state - Dexa scan central skeletal; Future Hyperthyroidism - Thyroid profile includes TSH FT4; Future - T3, free; Future Blood tests for routine general physical examination - Comprehensive metabolic panel; Future - CBC auto differential; Future - Lipid profile; Future - Hemoglobin A1c; Future Need for hepatitis C screening test - Hepatitis C(HCV) Ab w/ Reflex to PCR; Future Colonoscopy screening discussed today. Risk and benefits of procedure explained. Patient declines colonoscopy and Cologuard screening. Wellness labs drawn in office today Body mass index is 29.07 kg/m . Patient noted to have elevated BMI and the following intervention(s) were applied: Discussed current weight today. Consider healthy food choices, portion control. Avoid sugary beverages and high concentrated sweets. Routine exercise regimen encouraged. Education regarding influenza, shingles, and COVID vaccines. She has declined today. May receive at local pharmacy if she wishes to pursue. Mammogram and DEXA screening ordered today. ALL QUESTIONS ANSWERED Total time spent was 35 minutes: Preparing to see the patient (e.g., review of tests) Obtaining and/or reviewing separately obtained history Performing a medically appropriate examination and/or evaluation Counseling and educating the patient/family/caregiver Ordering medications, tests, or procedures Follow-up: One year Annual physical NICOLE Spencer 03/20/24 1623 [facility] Evaluation note Note Date & Type Note Facility Evaluation note Diagnosis Annual physical exam- Primary Routine general medical examination at a health care facility Encounter for screening mammogram for malignant neoplasm of breast Encounter for screening for osteoporosis Asymptomatic menopausal state Hyperthyroidism Thyrotoxicosis without mention of goiter or other cause, without mention of thyrotoxic crisis or storm Blood tests for routine general physical examination Laboratory examination ordered as part of a routine general medical examination Need for hepatitis C screening test Special screening examination for other specified viral diseases [facility] Evaluation note Note Date & Type Note Facility Evaluation note Diagnosis Hyperthyroidism- Primary Thyrotoxicosis without mention of goiter or other cause, without mention of thyrotoxic crisis or storm documented in this encounter [facility] Instructions Attachments Note Date & Type Note Facility Instructions The following attachments cannot be sent through Care Everywhere.Yearly Physical for Adults (Sudanese)documented in this encounter [facility] Instructions Note Date & Type Note Facility Instructions Not on filedocumented in this en counter [facility] Summary Purpose Family History No Family History Records FoundNo Family History Records FoundNo Family History Records FoundNo Family History Records Found Advance Directives No Advanced Directives Records FoundNo Advanced Directives Records FoundNo Advanced Directives Records FoundNo Advanced Directives Records Found Additional Source Comments INFORMATION SOURCE (unrecogn ized section and content) DATE CREATED AUTHOR 08/13/2021 [facility] DATE CREATED AUTHOR AUTHOR'S ORGANIZ ATION 11/10/2021 [facility] DATE CREATED AUTHOR AUTHOR'S ORGANIZ ATION 03/22/2024 [facility] DATE CREATED AUTHOR AUTHOR'S ORGANIZ ATION 03/22/2024 [facility] Reason for Visit (unrecogniz ed section and content) Reason Comments Annual Exam Care Teams (unrecognized sec tion and content) Butt Sawyer Relationship Specialty Start Date End Date Adelaide Mathur DECLAN-SHIPYARD SUPERVISOR [address] [place] [phone] PCP - General Family Medicine 02/15/24 Butt Sawyer Relationship Specialty Start Date End Date Adelaide Mathur, DECLAN-SHIPYARD SUPERVISOR [address] [place] [id number] PCP - General Family Medicine 02/15/24 FOR RECORDS PERTAINING TO PATIENTS WHO ARE OR HAVE BEEN ENROLLED IN A CHEMICAL DEPENDENCY/SUBSTANCEABUSE PROGRAM, SOME INFORMATION MAY BE OMITTED. This clinical summary was aggregated from multiple sources. Caution should be exercised in using it in the provision of clinical care. This summary normalizes information from multiple sources, and as a consequence, information in this document may materially change the coding, format and clinical context of patient data. In addition, data may be omitted in some cases. CLINICAL DECISIONS SHOULD BE BASED ON THE PRIMARY CLINICAL RECORDS. [facility]. provides no warranty or guarantee of the accuracy or completeness of information in this document.
== END 2024-05-08 13:27 | disposition home or self-care (01) ==
LOC: MAMMO 13:26
PROVIDERS: PCP Family Medicine; Visit Provider Nurse Practitioner
DX: Z12.31 Encounter for screening mammogram for malignant neoplasm of breast (principal); Z80.0 Family history of malignant neoplasm of digestive organs
CPT/HCPCS: 77063; 77067